=== PATIENT | male | born 1960 | race Caucasian/White ===

== ENCOUNTER → 2023-08-07 22:07 | Day surgery (SDC) | payer OTHER, SELFPAY ==
[2023-08-07] VITALS (10 sets, daily range): BP systolic 162–192; BP diastolic 101–123
[2023-08-07] MEDS: ZOFRAN 4 MG IV (20:03)
[2023-08-07] MEDS: GlucaGen 2 MG IV (20:07)
--- NOTE | 2023-08-07 20:20 | EDRN ---
Pt swallowed steak approximately 2 hours ago and it feels stuck. No sob, n/v. Pt able to swallow saliva however he says it comes back up. no hx of similar incident. After glucagon pt thinks it may have passed.
--- NOTE | 2023-08-07 20:31 | ED.GENMED ---
History of Present Illness
General
Chief Complaint: Swallowing Problem
Time Seen by Provider: 08/07/23 19:15
Travel History
Have you had any contact with someone who has COVID-19?: No
Do you have any symptoms of coronavirus? Fever > 100 degrees, chills, cough, shortness of breath, sore throat, loss of taste or smell, muscle aches, or headache?: No
History of Present Illness
History of Present Illness:
63-year-old male presents the emergency department for evaluation of a suspected esophageal food obstruction. Was eating pizza steak, states he felt to get stuck in the mid chest and has been unable to tolerate secretions since. No history of
this. Not on any anticoagulants
Review of Systems
Review of Systems
Allergies reviewed?: Yes
All Other Systems: ROS reviewed and negative except as documented in HPI and ROS
Phy Exam
Physical Exam
Physical Exam:
GEN: visibly uncomfortable, not tolerating secretions
HEENT: Oral mucosa moist, no scleral icterus
Cardiac: Regular rate
Lung: No respiratory distress, no tachypnea
MSK: No gross deformity or injuries
Skin: Good color, no pallor or jaundice, no rashes
Neuro: AO x3, moves all extremities freely
Psych: Calm, cooperative
Course
Orders/Labs/Results
Orders:
Orders
08/07/23 19:19
Electrocardiogram (*1) Urgent
Reason for Study: Chest Pain
EKG- Treatment ONCE
Glucagon [GlucaGen] 2 mg IV NOW STA
Ondansetron Injectable [Zofran] 4 mg IV NOW STA
Vital Signs
Initial and Last Documented VS:
Initial Vital Signs
Pulse Resp BP Pulse Ox
79 16 192/123 96
08/07/23 18:56 08/07/23 18:56 08/07/23 18:56 08/07/23 18:56
Last Documented Vital Signs
Pulse Resp BP Pulse Ox
93 20 166/111 94
08/07/23 20:15 08/07/23 20:15 08/07/23 20:15 08/07/23 20:15
MDM/Problems Addressed
MDM/Problems Addressed:
Patient failed trial of IV glucagon and antiemetics as well as carbonated beverages, communicated findings with gastroenterology who will urgently take the patient for endoscopy
*Critical Care Note
Total Time (30-74mins, 75-104mins- exclusive of procedures): Not Applicable
ED Attending Note
-
Portions of this chart may have been created with voice recognition software.� Occasional wrong word or��sound alike� substitutions may have occurred due to the inherent limitations of voice recognition software.
Discharge Plan
Departure
Patient Disposition: GI LAB
Date of Disposition: 08/07/23
Time of Disposition: 20:31
Presentation/result/management discussed w/ accepting MD/DO: Gastroenterology
Discharge Problem:
Esophageal obstruction due to food impaction
Prescriptions:
No Action
aspirin 81 mg Tablet,Delayed Release (Dr/Ec)
81 mg PO DAILY
allopurinol
1 tab PO DAILY
Patient Comments:
pt does not know mg
indomethacin
1 tab PO DAILY
Patient Comments:
pt does not know mg
Referrals:
Manfred Ghotra DO [Family Provider] -
Interventions
Interventions:
*Risk Screen - Suicide Last Done: 08/07/23 19:54
*General Assessment Last Done: 08/07/23 19:54
*Neglect/Abuse Screening Last Done: 08/07/23 19:54
*ED COVID-19 Vaccine History Last Done: 08/07/23 19:52
ED-EENT Assessment Last Done: 08/07/23 20:18
ED- Pulmonary Assessment Last Done: 08/07/23 20:18
ED- Neurological Assessment Last Done: 08/07/23 20:18
Discharge Date and Time
Print Language: INDONESIAN
--- NOTE | 2023-08-07 21:04 | CON.GI ---
Consultation
-
Date/Time Consultation Requested: 08/07/23 8:30pm
Date/Time Consultation Performed: 08/07/23 9:04pm
Requesting Provider: Florentin Rodriguez
Performing Provider: Willy Deng
Reason for Consultation: Food impaction
Medical History
Chief Complaint / HPI
Chief Complaint: Food impaction
History of Present Illness:
63 year old male presents with steak getting stuck in his throat around 5:30pm. Glucagon was tried in the ER without relief. Unable to tolerate secretions. No prior EGD. He has had rare episodes of food sticking that passes with drinking water.
He believes this food got stuck because he ate too fast
Past Medical History
Past Medical History: CAD and Other (gout)
Social History
Tobacco: Non-Smoker
Alcohol: Occasional (social, rare)
Family History
Family History: Reviewed & Not Pertinent
Allergies / Home Medications
Allergy/AdvReac Type Severity Reaction Status Date / Time
Penicillins Allergy shortness Verified 08/07/23 20:12
of
breath;swelling
shellfish derived Allergy Unknown Verified 08/07/23 20:12
�Medication �Instructions �Recorded
allopurinol 1 tab PO DAILY 08/07/23
aspirin 81 mg tablet,delayed 81 mg PO DAILY 08/07/23
release
indomethacin 1 tab PO DAILY 08/07/23
Review of Systems
-
All other systems: A 12 pt ROS was Negative except as stated above in HPI
Vital Signs
Pulse Resp BP Pulse Ox
93 20 166/111 94
08/07/23 20:15 08/07/23 20:15 08/07/23 20:15 08/07/23 20:15
Physical Exam
Exam
General: Other (uncomfortable spitting into basin)
HEENT: Normocephalic and Atraumatic
Respiratory: Non Labored Respirations
GI: Soft, Non Tender and Non Distended
Musculoskeletal: No Edema
Skin: Warm and Dry
Neuro: Alert
Results
Diagnostic Image Results:
Prior GI Procedures:
EGD:
Colonoscopy:
Assessment / Plan
-
Impression:
63yo male presents with food impaction. No prior episodes, no prior EGD
Recommendations:
EGD to remove food impaction
-
-
Thank you for consultation and allowing me to participate in the patient's care. Please call the strategy consultant GI physician during the after hours with any questions or concerns.
== END ==
LOC: EMR 18:53 → PACU 22:07
PROVIDERS: ATTENDING PHYSICIAN Specialist; EMERGENCY PHYSICIAN Student in an Organized Health Care Education/Training Program; FAMILY PHYSICIAN Family Medicine
DX: K20.90 Esophagitis, unspecified without bleeding (principal); T18.128A Food in esophagus causing other injury, initial encounter; W44.F3XA Food entering into or through a natural orifice, initial encounter
CPT/HCPCS: 43235; 93005; 96374; 96375; 99285; J1610

== ENCOUNTER 2023-09-11 13:13 | Emergency (ER) | payer OTHER, SELFPAY ==
[2023-09-11 13:20] VITALS: BP 143/94
[2023-09-11 13:51] LABS: % Basophils 0.5 % (0-2); % Eosinophils 2.6 % (0-6); % Immature Granulocytes 0.2 % (0-0.5); % Lymphocytes 38.1 % (20.5-51.1); % Monocytes 8.6 % (1.7-9.3); Absolute Eosinophils 0.2 10^3/uL (0-0.7); Absolute Lymphocytes 2.2 10^3/uL (1.2-3.4); Absolute Monocytes 0.5 10^3/uL (0.1-0.6); Absolute Neutrophils 2.9 10^3/uL (1.4-6.5); Hematocrit 40.5 % (39.0-52.0); Hemoglobin 14.5 g/dL (13.0-18.0); Mean Corp Hgb Conc. 35.8 g/dL (33.0-37.0); Mean Corpuscular Hgb 33.2 pg (27.0-31.0); Mean Corpuscular Volume 92.7 fL (80.0-94.0); Mean Platelet Volume 9.5 fL (7.4-10.4); Nucleated Red Blood Cells % 0 % (-); Platelet Count 160 10^3/uL (130-400); Red Blood Cell Count 4.37 10^6/uL (4.70-6.10); Red Cell Dist. Width 12.6 % (11.5-14.5); White Blood Cell Count 5.7 10^3/uL (4.8-10.8)
[2023-09-11 14:08] LABS: Troponin I < 0.012 ng/ml
[2023-09-11 14:16] LABS: ALT (SGPT) 47 U/L (0-50); AST (SGOT) 37 U/L (17-59); Albumin 4.5 g/dl (3.5-5.0); Alkaline Phosphatase 69 U/L (38-126); Blood Urea Nitrogen 17 mg/dl (9-20); Calcium 9.1 mg/dl (8.4-10.2); Carbon Dioxide 27 mmol/L (22-30); Chloride 103 mmol/L (98-107); Glucose 104 mg/dl (70-99); Potassium 4.5 mmol/L (3.5-5.1); Sodium 137 mmol/L (135-145); Total Bilirubin 0.9 mg/dl (0.2-1.3); Total Protein 6.9 g/dl (6.3-8.2); eGFR > 60.00
[2023-09-11 15:27] VITALS: BP 126/87
[2023-09-11] MEDS: LOW STRENGTH ASPIRIN 81 MG PO (16:15)
[2023-09-11 16:44] LABS: D-Dimer 0.36 ug/mlFEU (0.00-0.50)
--- NOTE | 2023-09-11 17:36 | ED.GENMED ---
History of Present Illness
<Shawna Dwyer PA-C - Last Filed: 09/11/23 20:23>
General
Chief Complaint: Chest Pain
Source: patient
Exam Limitations: none
Time Seen by Provider: 09/11/23 15:13
Nursing documentation reviewed up to this point in time: agreed with
History of Present Illness
History of Present Illness:
pt is a 63 y/o M with h/o HTN, gout
says he has ho cardiac stent but cath report says no stenting
here with ches tpressure that started at 12 noon while sitting at his desk. he says that he has a pressure in his left chest that is mild to moderate, nothing makes it come on or resolve but it comes and goes and he also has aassociated feeling of
pins and needles in his anterior thigh
he has never had symptoms like this before
is under a lotof stress in general
no sweatiness, nausea, vomiting, sob, pleuritic pain, leg pain, recent travel, dvt or pe history
took a baby aspirin today
pt is followed by dr. peters
following an endosocpy last month, pt was hypertensive and started on new bp med so he was instructed to f/u
he has appt in october
Review of Systems
<Shawna Dwyer PA-C - Last Filed: 09/11/23 20:23>
Review of Systems
Allergies reviewed?: Yes
All Other Systems: Not applicable
Phy Exam
<Shawna Dwyer PA-C - Last Filed: 09/11/23 20:23>
Physical Exam
Physical Exam:
GENERAL: Alert , in no apparent distress
EYE: pupils equal and reactive
NECK: Supple
ENT: o/p clr, mmm.
CARDIAC: Regular rate and rhythm .
LUNGS: Clear breath sounds bilaterally, no acute respiratory distress, no wheezes/rales/rhonchi
chest wall; nontender, no rash
ABDOMEN: Soft, without focal tenderness, no r/g, no cvat, normal bowel sounds
NEUROLOGICAL: Alert and oriented, no focal neuro deficits
SKIN: Warm and dry, skin intact.
MUSCULOSKELETAL: No edema, well perfused. neg mariana's sign
normal pulse femoral
normal sensation to light touch
PSYCH: Normal and appropriate interaction.
Scores
<Shawna Dwyer PA-C - Last Filed: 09/11/23 20:23>
Heart Score for Chest Pain Patients
STEMI patient?: No
History: Moderately Suspicious
ECG: Normal
Age: >45 - <65 years
Risk Factors: 1 or 2 Risk Factors
Troponin: </= Normal Limit
Heart Score for Chest Pain Patients: 3
Heart Score Risk: 2.5% MACE over next 6 weeks
Course
<Shawna Dwyer PA-C - Last Filed: 09/11/23 20:23>
Orders/Labs/Results
Orders:
Orders
09/11/23 13:13
Electrocardiogram (*1) Urgent
Reason for Study: Chest Pain
09/11/23 13:14
EKG- Treatment ONCE
09/11/23 13:28
CMP [Comprehensive Metabolic Panel] Urgent
Complete Blood Count/With Diff Urgent
Troponin I Urgent
09/11/23 15:51
CR Chest - 2 Views Urgent
Comment:
Reason For Exam: chest pain
09/11/23 15:52
Aspirin Chewable [Low Strength Aspirin] 81 mg PO NOW STA
09/11/23 16:18
EKG- Treatment ONCE
09/11/23 16:20
D-Dimer Urgent
09/11/23 17:30
Electrocardiogram (*1) Urgent
Reason for Study: Chest Pain
09/11/23 17:35
Troponin I Urgent
Abnormal Lab Results
09/11/23
13:28
RBC 4.37 L 10^6/uL
(4.70-6.10)
MCH 33.2 H pg
(27.0-31.0)
Glucose 104 H mg/dl
(70-99)
09/11/23 13:28
09/11/23 13:28
Vital Signs
Initial and Last Documented VS:
Initial Vital Signs
Temp Pulse Resp BP Pulse Ox
99.6 F 74 16 143/94 96
09/11/23 13:20 09/11/23 13:20 09/11/23 13:20 09/11/23 13:20 09/11/23 13:20
Last Documented Vital Signs
Temp Pulse Resp BP Pulse Ox
98.6 F 64 20 129/80 98
09/11/23 19:10 09/11/23 19:10 09/11/23 19:10 09/11/23 19:10 09/11/23 19:10
<Alejandro Ba MD - Last Filed: 09/11/23 18:50>
Orders/Labs/Results
Orders:
Orders
09/11/23 13:13
Electrocardiogram (*1) Urgent
Reason for Study: Chest Pain
09/11/23 13:14
EKG- Treatment ONCE
09/11/23 13:28
CMP [Comprehensive Metabolic Panel] Urgent
Complete Blood Count/With Diff Urgent
Troponin I Urgent
09/11/23 15:51
CR Chest - 2 Views Urgent
Comment:
Reason For Exam: chest pain
09/11/23 15:52
Aspirin Chewable [Low Strength Aspirin] 81 mg PO NOW STA
09/11/23 16:18
EKG- Treatment ONCE
09/11/23 16:20
D-Dimer Urgent
09/11/23 17:30
Electrocardiogram (*1) Urgent
Reason for Study: Chest Pain
09/11/23 17:35
Troponin I Urgent
Abnormal Lab Results
09/11/23
13:28
RBC 4.37 L 10^6/uL
(4.70-6.10)
MCH 33.2 H pg
(27.0-31.0)
Glucose 104 H mg/dl
(70-99)
09/11/23 13:28
09/11/23 13:28
Vital Signs
Initial and Last Documented VS:
Initial Vital Signs
Temp Pulse Resp BP Pulse Ox
99.6 F 74 16 143/94 96
09/11/23 13:20 09/11/23 13:20 09/11/23 13:20 09/11/23 13:20 09/11/23 13:20
Last Documented Vital Signs
Temp Pulse Resp BP Pulse Ox
98.6 F 64 20 129/80 98
09/11/23 19:10 09/11/23 19:10 09/11/23 19:10 09/11/23 19:10 09/11/23 19:10
<Shawna Dwyer PA-C - Last Filed: 09/11/23 20:23>
MDM/Problems Addressed
Differential Diagnosis Includes:
acs, anxiety, gerd, haroldo wall pain, PE, less luikely dissection
MDM/Problems Addressed:
63 y/o M
he says he has h/o cardiac stent
BUT CONFIRMED PT DOES NOT HAVE A STENT, HE HAD A CATH IN 2007 THAT [facility] NEG AND NO INTERVENTION PERFORMED
here with chest pain intermittent at rest today left upper as a pressure
undr a lot of stress
also felt tingling in his left thigh
looks a little anxious but symmetric bp 129/94 on R, 133/91 on L
well appearin gotherwise
normal ekgs x 2
2 neg trop
no mediastinal widening
neg d dimer
seen by ed attending who recommended d/w cards
i spoke with his vice principal dr. peters, who hasn't een him since 2017
[facility]
return precautions.
painf ree
<Shawna Dwyer PA-C - Last Filed: 09/11/23 20:23>
*Critical Care Note
Total Time (30-74mins, 75-104mins- exclusive of procedures): Not Applicable
ED Attending Note
<Shawna Dwyer PA-C - Last Filed: 09/11/23 20:23>
-
Portions of this chart may have been created with voice recognition software.� Occasional wrong word or��sound alike� substitutions may have occurred due to the inherent limitations of voice recognition software.
<Alejandro Ba MD - Last Filed: 09/11/23 18:50>
ED Attending Note
Patient seen and examined by attending physician: Yes
ED Attending Note:
Patient presents to ED secondary to sudden onset of chest pain while he was at work around 12 PM this afternoon. Chest pain described as left-sided, described as pressure-like, with left hand tingling sensation. In addition, at the same time,
patient noted tingling sensation in his left anterior thigh, which now has resolved. Patient states that he had similar episode over 10 years ago, when he received cardiac stent placement. Otherwise, denies recent illness. Denies recent change in
medications or diet. Denies trauma. Denies recent travel. Denies recent surgery. Patient has been told that he has sleep apnea, but has not been able to obtain BiPAP machine yet.
Physical Exam
General: no apparent distress, not acutely ill. afebrile
Head: nc/at. eomi
Neck: supple. no meningeal signs.
Heart: s1/s2 regular rate and rhythm, no murmur. equal radial pulses.
Lungs: no acute respiratory distress. clear bilaterally
Abdomen: normal bowel sounds. not tender.
Neuro: alert and oriented. no focal neurological deficits
Skin: no rash
Psychiatric: well kept. interactive and cooperative
Extremities: no edema. no calf tenderness.
Patient with an unremarkable workup in ED, including repeat troponin and EKG, as well as D-dimer. Discussed with on-call vice principal, , who is patient's primary vice principal. Feels that patient can be discharged home for an urgent
outpatient follow-up. In fact, Dr. Peters states that patient does not have any cardiac stents in place and has had similar chest pain in the past. Otherwise, patient is afebrile, hemodynamically stable, and appears comfortable, at time of
discharge, to the care of his .
Discharge Plan
Departure
Patient Disposition: Home (Routine Discharge)
Date of Disposition: 09/11/23
Time of Disposition: 18:29
Patient with high blood pressure during this ER visit?: No
Condition: Fair
Covid-19: Not Applicable
Discharge Problem:
Chest pain
Instructions: Chest Pain CBC Follow Up
Prescriptions:
No Action
aspirin 81 mg Tablet,Delayed Release (Dr/Ec)
81 mg PO DAILY
allopurinol
1 tab PO DAILY
Patient Comments:
pt does not know mg
indomethacin
1 tab PO DAILY
Patient Comments:
pt does not know mg
Referrals:
Manfred Ghotra, DO [Family Provider] - Follow up in 2-3 days
Activity Restrictions/Additional Instructions:
Were not sure the cause of your chest pain but you should be getting a phone call from the cardiology office to follow-up. In the meantime continue aspirin once a day and your blood pressure medication. Avoid heavy lifting.
Return for passing out, worsening chest pain or shortness of breath, weakness, sweatiness, dizziness etc. Otherwise follow-up with Dr. peters as an outpatient
Interventions
Interventions:
*Risk Screen - Suicide Last Done: 09/11/23 15:15
*General Assessment Last Done: 09/11/23 13:20
*Neglect/Abuse Screening Last Done: 09/11/23 15:15
ED- Fall Risk Assessment Last Done: 09/11/23 19:02
*ED COVID-19 Vaccine History Last Done: 09/11/23 13:20
*Nursing Disposition Last Done: 09/11/23 19:10
ED- Cardiac Assessment Last Done: 09/11/23 19:02
Discharge Date and Time
Discharge Date/Time: 09/11/23 19:35
Print Language: BRITISH
[2023-09-11 18:08] LABS: Troponin I < 0.012 ng/ml
[2023-09-11 18:41] VITALS: BP 143/92
[2023-09-11 19:02] VITALS: BP 132/100
[2023-09-11 19:10] VITALS: BP 129/80
== END 2023-09-11 19:35 | disposition home or self-care (01) ==
LOC: EMR 13:13
PROVIDERS: Emergency Medicine; Physician Assistant; EMERGENCY PHYSICIAN Emergency Medicine; FAMILY PHYSICIAN Family Medicine
DX: R07.89 Other chest pain (principal); R20.2 Paresthesia of skin; G47.30 Sleep apnea, unspecified; Z73.3 Stress, not elsewhere classified; I10 Essential (primary) hypertension; M10.9 Gout, unspecified; Z88.0 Allergy status to penicillin; Z91.013 Allergy to seafood
CPT/HCPCS: 99284; 71046; 80053; 84484; 85025; 85379; 93005

== ENCOUNTER → 2023-11-11 07:13 | Outpatient (REF) | payer OTHER, SELFPAY | LOC: HWRCS 07:13 | PROVIDERS: ATTENDING PHYSICIAN Internal Medicine; FAMILY PHYSICIAN Family Medicine | DX: R07.9 Chest pain, unspecified (principal); I10 Essential (primary) hypertension | CPT/HCPCS: 93306 ==